=== PATIENT | female | born 1940 | race Caucasian/White ===

== ENCOUNTER 2019-02-27 09:33 | Emergency (ER) | payer MEDICARE ==
[2019-02-27 09:49] VITALS: BP 121/69
--- NOTE | 2019-02-27 10:20 | UC ---
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 Has been getting progressively worse. " -she does smoke. not aware of any dx of COPD. never needed inhalers. has had pneumoniabefoer but usually has rib painw ith that that she does not have this time. -DALEY is at b/l temples. not cheeks or forehead. + productioon. no wheezing -cough is significant -she is very active and loves being outside. - History of Current Complaint Chief Complaint: UCGeneralIllness Stated Complaint: COUGH,CHILLS,HEADACHE,DIARRHEA Time Seen by Provider: 02/27/19 10:09 Pain Intensity: 0 - Allergies/Home Medications Allergies/Adverse Reactions: Allergies Allergy/AdvReac Type Severity Reaction Status Date / Time No Known Allergies Allergy Verified 02/27/19 09:44 Home Medications: Home Medications Aspirin 81 mg CHEW TAB* 81 mg PO DAILY 02/27/19 [History Confirmed 02/27/19] FLUoxetine CAP* [Prozac CAP*] 20 mg PO DAILY 02/27/19 [History Confirmed ] Levothyroxine TAB* [Synthroid 125 MCG TAB*] 125 mcg PO 0800 02/27/19 [History Confirmed 02/27/19] Simvastatin [Zocor] 40 mg PO DAILY 02/27/19 [History Confirmed 02/27/19] PMH/Surg Hx/FS Hx/Imm Hx Previously Healthy: Yes Endocrine History: Thyroid Disease - Surgical History Surgical History: Yes Surgery Procedure, Year, and Place: HYSTERECTOMY 2016. APPENDECTOMY AGE 11 - Family History Known Family History: Positive: Hypertension - Social History Alcohol Use: None Substance Use Type: None Smoking Status (MU): Light Every Day Tobacco Smoker Type: Cigarettes Amount Used/How Often: 1/3 PPD Review of Systems All Other Systems Reviewed And Are Negative: Yes Constitutional: Positive: Fever, Chills, Fatigue Skin: Positive: Negative Eyes: Positive: Negative ENT: Positive: Sore Throat. Negative: Sinus Pain/Tenderness Respiratory: Positive: Cough. Negative: Shortness Of Breath Cardiovascular: Positive: Negative Gastrointestinal: Positive: Negative Genitourinary: Positive: Negative Motor: Positive: Negative Neurovascular: Positive: Negative Musculoskeletal: Positive: Negative Neurological: Positive: Negative Psychological: Positive: Negative Is Patient Immunocompromised?: No Physical Exam Triage Information Reviewed: Yes Appearance: Well-Nourished, Ill-Appearing - mild - only d/t cough. she is quite agile. smiling Vital Signs: Initial Vital Signs Temp 98.6 F 02/27/19 09:45 Pulse 85 02/27/19 09:45 Resp 17 02/27/19 09:45 BP 121/69 02/27/19 09:45 Pulse Ox 97 02/27/19 09:45 Vital Signs Reviewed: Yes Eye Exam: Normal Eyes: Positive: Conjunctiva Clear ENT: Positive: Hearing grossly normal, Pharyngeal erythema, TMs normal, Uvula midline. Negative: TM bulging, TM dull, TM red, Tonsillar swelling, Tonsillar exudate, Sinus tenderness Neck exam: Normal Neck: Positive: Supple, Nontender, No Lymphadenopathy Respiratory Exam: Normal Respiratory: Positive: Normal breath sounds, No respiratory distress, No accessory muscle use, Decreased breath sounds, Rhonchi - mild b/l bases but improve after a cough. Negative: Crackles, Stridor, Wheezing Cardiovascular Exam: Normal Cardiovascular: Positive: RRR, No Murmur Abdominal Exam: Normal Musculoskeletal Exam: Normal Neurological Exam: Normal Psychological Exam: Normal Skin Exam: Normal Skin: Negative: Rashes Respiratory Course/Dx - Course Course Of Treatment: CXR: "IMPRESSION: LINEAR ATELECTASIS OF THE LEFT LUNG BASE" -will treat w. 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 probiotic. alb. explained rationale and she is very agreeable -avoid doxy bc of sun exposure - Differential Dx/Diagnosis Differential Diagnosis/HQI/PQRI: Bronchitis, Exacerbation Of COPD, Lower Resp Infection Provider Diagnosis: Bronchitis Discharge - Sign-Out/Discharge Documenting (check all that apply): Patient Departure All imaging exams completed and their final reports reviewed: Yes - Discharge Plan Condition: Stable Disposition: HOME Prescriptions: Amoxicillin PO (*) [Amoxicillin 875 MG (*)] 875 mg PO BID #20 tab Patient Education Materials: Acute Bronchitis (ED) Referrals: Rosalio Reynolds MD [Primary Care Provider] - 6 Days Additional Instructions: Make sure to take a probiotic daily while on antibiotics to help prevent a potential complication of antibiotic use called c diff. Some well known brands that can be found OTC are [employer]D Vision, flaregames and Fast FiBR. Make sure to complete the entire prescription unless advised otherwise by your health care provider. - Billing Disposition and Condition Condition: STABLE Disposition: Home
== END 2019-02-27 10:53 | disposition home or self-care (01) ==
LOC: UCCORT 09:33
DX: J40 Bronchitis, not specified as acute or chronic (principal); F17.210 Nicotine dependence, cigarettes, uncomplicated; E07.9 Disorder of thyroid, unspecified
CPT/HCPCS: 71046; 99212; G0463

== ENCOUNTER 2019-03-29 09:21 | Emergency (ER) | payer MEDICARE ==
[2019-03-29 10:11] VITALS: BP 143/31
--- NOTE | 2019-03-29 10:43 | UC ---
Respiratory Complaint HPI - HPI Summary HPI Summary: 78-year-old female comes in with a chief complaint of cough and chest congestion for one week. Patient reports about a month ago she had similar symptoms and was treated here and she got better. She then traveled to [place]. She came back from [place] 8 days ago 7 days ago she started the cough and chest congestion again. She is short of breath with any kind of activity. She is a smoker. Her sputum is green. She has clear rhinorrhea. No recent fevers. No history of COPD or asthma. - History of Current Complaint Chief Complaint: UCGeneralIllness Stated Complaint: COUGH,CHEST CONGESTION Time Seen by Provider: 03/29/19 10:32 Pain Intensity: 0 - Allergies/Home Medications Allergies/Adverse Reactions: Allergies Allergy/AdvReac Type Severity Reaction Status Date / Time No Known Allergies Allergy Verified 03/29/19 10:11 PMH/Surg Hx/FS Hx/Imm Hx Previously Healthy: Yes Endocrine History: Hypothyroidism, Dyslipidemia - Surgical History Surgical History: Yes Surgery Procedure, Year, and Place: HYSTERECTOMY 2016. APPENDECTOMY AGE 11 - Family History Known Family History: Positive: Hypertension - Social History Alcohol Use: Rare Substance Use Type: None Smoking Status (MU): Light Every Day Tobacco Smoker Type: Cigarettes Amount Used/How Often: 1/3 PPD Length of Time of Smoking/Using Tobacco: 35 yr Review of Systems All Other Systems Reviewed And Are Negative: Yes Constitutional: Positive: Negative Skin: Positive: Negative Eyes: Positive: Negative ENT: Positive: Nasal Discharge Respiratory: Positive: Shortness Of Breath, Cough, Other - SEE HPI Cardiovascular: Positive: Negative Gastrointestinal: Positive: Negative Motor: Positive: Negative Neurovascular: Positive: Negative Musculoskeletal: Positive: Negative Neurological: Positive: Negative Psychological: Positive: Negative Is Patient Immunocompromised?: No Physical Exam Triage Information Reviewed: Yes Appearance: Well-Appearing, No Pain Distress, Well-Nourished Vital Signs: Initial Vital Signs Temp 98.7 F 03/29/19 10:04 Pulse 78 03/29/19 10:04 Resp 18 03/29/19 10:04 BP 143/31 03/29/19 10:04 Pulse Ox 97 03/29/19 10:04 Vital Signs Reviewed: Yes Eye Exam: Normal Eyes: Positive: Conjunctiva Clear ENT: Positive: Pharynx normal, TMs normal Neck: Positive: Supple Respiratory: Positive: No respiratory distress, Rhonchi Cardiovascular: Positive: RRR Musculoskeletal: Positive: Strength Intact, ROM Intact Neurological Exam: Normal Neurological: Positive: Alert, Muscle Tone Normal Psychological Exam: Normal Psychological: Positive: Age Appropriate Behavior Skin Exam: Normal Respiratory Course/Dx - Course Course Of Treatment: Patient Name: ALONZO PAGE Medical Record#: [id number] Ordering Physician: Hero Yang MD Acct.#: [id number] : 1940 Age: 78 Sex: F Location: [facility] Exam Date: 03/29/19 1039 ADM Status: REG ER Order Information: CHEST PA LAT 2 VWS Accession Number: [id number] CPT: 30944 INDICATION: Cough, green sputum, shortness of breath. COMPARISON: Comparison is made with a prior study from February 27, 2019. TECHNIQUE: Dual-energy PA and lateral views of the chest were obtained. FINDINGS: The heart is within normal limits in size. There are small infiltrates at both lung bases which appear new. No pleural effusion is seen. There is blunting of the left posterior costophrenic angle which is unchanged suggestive of pleural scarring. IMPRESSION: SMALL BIBASILAR INFILTRATES SUGGESTIVE OF PNEUMONIA. <Electronically signed by Kevin Roblero MD in OV> 03/29/19 1104 I discussed the x-rays with the patient. Patient has been on amoxicillin 1 month ago. Therefore we need to treat with another fluoroquinolone or dual therapy. I discussed all this with the patient. Due to the increased risk for C. difficile therefore quinolones we'll choose a dual therapy. It shows a azithromycin Z-Kwame and also the Augmentin XR 2 g by mouth twice a day. [facility] did not have the Augmentin XR available therefore I called that prescription into the patient's pharmacy. Augmentin XR 1000 mg 2 tabs by mouth twice a day for 10 days total #40 tablets no refills. Also wrote a prescription for albuterol. We discussed that she get worse she needs to get further evaluation emergency Department. - Differential Dx/Diagnosis Provider Diagnosis: Pneumonia Discharge - Sign-Out/Discharge Documenting (check all that apply): Patient Departure All imaging exams completed and their final reports reviewed: Yes - Discharge Plan Condition: Stable Disposition: HOME Prescriptions: Albuterol HFA INHALER* [Ventolin HFA Inhaler*] 2 puff INH Q4H PRN #1 mdi PRN Reason: Wheezing Azithromyxin KWAME (NF) [Z-Kwame (Zithromax) 250 mg tabs #6] 2 tab PO .TODAY, THEN 1 DAILY #6 tab Patient Education Materials: Community Acquired Pneumonia (ED) Referrals: Rosalio Reynolds MD [Primary Care Provider] - Additional Instructions: FOLLOW UP WITH YOUR DOCTOR. TAKE BOTH THE AZITHROMYCIN AND AUGMENTIN XR 2GM TWICE A DAY. GET REEVALUATED SOONER IF WORSE; SHORTNESS OF BREATH, YOU FEEL ILL OR ANY QUESTIONS OR CONCERNS. - Billing Disposition and Condition Condition: STABLE Disposition: Home
== END 2019-03-29 11:53 | disposition home or self-care (01) ==
LOC: UCCORT 09:21
DX: J18.9 Pneumonia, unspecified organism (principal); F17.210 Nicotine dependence, cigarettes, uncomplicated
CPT/HCPCS: 71046; 99212; G0463